=== PATIENT | male | born 1965 | race Hispanic/Latino ===

== ENCOUNTER 2022-07-14 10:13 | Emergency (ER) | payer BC ==
[2022-07-14] MEDS ORDERED: Magnevist 469MG/ML 20 ML VIAL ONE (11:06)
[2022-07-14 11:54] LABS: #Basophils 0.1 thou/uL (0.0-0.2); #Eosinphils 0.2 thou/uL (0.0-0.7); #Lymphocytes 2.4 thou/uL (1.20-3.40); #Monocytes 0.7 thou/uL (0.11-0.59); #Neutrophils 4.2 thou/uL (1.40-6.50); %Basophils 0.8 % (0.0-1.0); %Eosinophils 2.4 % (0.0-10.0); %Lymphocytes 31.6 % (21.0-51.0); %Monocytes 9.2 % (0.0-10.0); %Neutrophils 55.9 % (42.0-75.0); Hemoglobin 14.2 g/dL (14.0-18.0); Mean Corpuscular HGB CONC 34.2 g/dL (32.0-36.0); Mean Corpuscular Hemoglobin 30.5 pg (27.0-31.0); Mean Corpuscular Volume 89.2 fl (78.0-98.0); Mean Platelet Volume 8.4 fL (7.4-10.4); Platelet Count 270 10x3/uL (130-400); RBC Distribution Width 13.2 % (11.5-14.5); Red Blood Cell (RBC) Count 4.67 mill/uL (4.70-6.10); White Blood Cell (WBC) Count 7.5 10x3/uL (4.8-10.8)
[2022-07-14 11:59] LABS: Albumin 4.2 g/dL (3.5-5.0)
[2022-07-14 12:00] LABS: Chloride 103 mmol/L (98-107); Potassium 3.8 mmol/L (3.5-5.1); Sodium 137 mmol/L (136-145)
[2022-07-14 12:01] LABS: Calcium 9.2 mg/dL (7.8-10.44); Glucose 177 mg/dL (70-105)
[2022-07-14 12:02] LABS: Globulin 3.4 g/dL (2.4-3.5); Protein, Total 7.6 g/dL (6.0-8.3)
[2022-07-14 12:03] LABS: Anion Gap 12 mmol/L (10-20); Bilirubin, Total 0.6 mg/dL (0.2-1.2); Carbon Dioxide 26 mmol/L (22-29)
[2022-07-14 12:04] LABS: Bilirubin Negative (Negative); Blood, Urine Negative (Negative); Clarity Clear (Clear); Glucose, Urine (Dipstick) 30 mg/dL (Negative); Ketone, Urine Negative (Negative); Leukocyte Negative Leu/uL (Negative); Nitrite Negative (Negative); Protein, Urine (Dipstick) Negative (Neg-Trace); Specific Gravity, Urine 1.009 (1.002-1.036); Urobilinogen Normal mg/dL (Less than 2)
[2022-07-14 12:04] LABS: Alkaline Phosphatase 72 U/L (40-110)
[2022-07-14 12:05] LABS: Calc. Creatinine Clearance 0 mL/min (70-130); Estimated GFR 101
[2022-07-14 12:06] LABS: BUN (Urea Nitrogen) 10 mg/dL (8.4-25.7)
[2022-07-14 12:07] LABS: ALT (SGPT) 45 U/L (8-55); AST (SGOT) 22 U/L (5-34)
[2022-07-14] MEDS ORDERED: Diazepam 5 MG TAB ONE ×2 (13:02→13:07)
== END 2022-07-14 15:25 | disposition home or self-care (01) ==
LOC: ERS 10:13
DX: G51.0 Bell's palsy (principal); R42 Dizziness and giddiness; E11.9 Type 2 diabetes mellitus without complications; E78.5 Hyperlipidemia, unspecified; Z79.899 Other long term (current) drug therapy; Z79.84 Long term (current) use of oral hypoglycemic drugs; Z79.4 Long term (current) use of insulin
CPT/HCPCS: 36415; 70553; 71045; 80053; 81003; 84484; 85025; 93005; A9579